=== PATIENT | female | born 1980 | race African-American/Black ===

== ENCOUNTER 2016-09-06 20:51 | Emergency (ER) | payer OTHER ==
[~2016-09-06] VITALS: Ht 167.6 cm; Wt 98.9 kg
[~2016-09-06 20:51] MED LIST: ACET-704 PO; IBUP-1060 PO
--- NOTE | 2016-09-06 21:14 | PHYS DOC ---
Past Medical History Past Medical History: No Pertinent History Past Surgical History: No Surgical History Alcohol Use: None Drug Use: None Adult General Chief Complaint Chief Complaint: HEADACHE HPI HPI Patient is a 36 year old female who presents with right sided neck pain. She states his been on for last 2 days. It kind comes and goes. She states the muscle that hurts in the base of her skull down the right lateral aspect of her neck and into her back. She denies any dizziness, headache, nausea vomiting or fevers or chills. She states that she's had this flareup in the past and saw somebody in August but they didn't give her anything for it. She states that she needs a muscle relaxant. Review of Systems Review of Systems Constitutional: Denies fever or chills [] Eyes: Denies change in visual acuity, redness, or eye pain [] HENT: Denies nasal congestion or sore throat [] Respiratory: Denies cough or shortness of breath [] Cardiovascular: No additional information not addressed in HPI [] GI: Denies abdominal pain, nausea, vomiting, bloody stools or diarrhea [] : Denies dysuria or hematuria [] Musculoskeletal: Denies back pain or joint pain [] Integument: Denies rash or skin lesions [] Neurologic: Denies headache, focal weakness or sensory changes [] Endocrine: Denies polyuria or polydipsia [] Allergies Allergies Allergies Coded Allergies Type Severity Reaction Last Updated Verified No Known Drug Allergies 07/31/15 No Physical Exam Physical Exam Constitutional: Well developed, well nourished, no acute distress, non-toxic appearance. [] HENT: Normocephalic, atraumatic, bilateral external ears normal, oropharynx moist, no oral exudates, nose normal. [] Eyes: PERRLA, EOMI, conjunctiva normal, no discharge. [] Neck: Normal range of motion, tender to palpation without any erythema over the right lateral posterior neck radiates down into her shoulder, supple, no stridor. No midline tenderness or step-offs noted. Cardiovascular:Heart rate regular rhythm, no murmur [] Lungs & Thorax: Bilateral breath sounds clear to auscultation [] Abdomen: Bowel sounds normal, soft, no tenderness, no masses, no pulsatile masses. [] Skin: Warm, dry, no erythema, no rash. [] Back: Tender palpation along teres minor in the right side of her upper back, no CVA tenderness. [] Extremities: No tenderness, no cyanosis, no clubbing, ROM intact, no edema. [] Neurologic: Alert and oriented X 3, normal motor function, normal sensory function, no focal deficits noted. [] Psychologic: Affect normal, judgement normal, mood normal. [] Current Patient Data Vital Signs Vital Signs Date Time Temp Pulse Resp B/P (MAP) Pulse Ox O2 Delivery O2 Flow Rate FiO2 09/06/16 21:00 98.1 78 18 120/60 (80) 100 Room Air 98.1 Lab Values Laboratory Tests Test 09/06/16 20:18 09/06/16 21:00 09/06/16 21:14 POC Urine HCG, Qualitative Hcg negative (Negative) Urine Collection Type Unknown Urine Color Yellow Urine Clarity Clear Urine pH 5.5 Urine Specific [place] >=1.030 Urine Protein Negative mg/dL (NEG-TRACE) Urine Glucose (UA) Negative mg/dL (NEG) Urine Ketones (Stick) Negative mg/dL (NEG) Urine Blood Moderate (NEG) Urine Nitrite Negative (NEG) Urine Bilirubin Negative (NEG) Urine Urobilinogen Dipstick 0.2 mg/dL (0.2 mg/dL) Urine Leukocyte Esterase Small (NEG) Urine RBC 1-2 /HPF (0-2) Urine WBC 1-4 /HPF (0-4) Urine Squamous Epithelial Cells Many /LPF Urine Bacteria Few /HPF (0-FEW) Urine Mucus Mod /LPF White Blood Count 5.5 x10^3/uL (4.0-11.0) Red Blood Count 4.54 x10^6/uL (3.50-5.40) Hemoglobin 13.4 g/dL (12.0-15.5) Hematocrit 40.1 % (36.0-47.0) Mean Corpuscular Volume 88 fL (79-100) Mean Corpuscular Hemoglobin 30 pg (25-35) Mean Corpuscular Hemoglobin Concent 34 g/dL (31-37) Red Cell Distribution Width 13.5 % (11.5-14.5) Platelet Count 148 x10^3/uL (140-400) Neutrophils (%) (Auto) 40 % (31-73) Lymphocytes (%) (Auto) 51 % (24-48) H Monocytes (%) (Auto) 9 % (0-9) Eosinophils (%) (Auto) 1 % (0-3) Basophils (%) (Auto) 0 % (0-3) Neutrophils # (Auto) 2.2 x10^3uL (1.8-7.7) Lymphocytes # (Auto) 2.8 x10^3/uL (1.0-4.8) Monocytes # (Auto) 0.5 x10^3/uL (0.0-1.1) Eosinophils # (Auto) 0.0 x10^3/uL (0.0-0.7) Basophils # (Auto) 0.0 x10^3/uL (0.0-0.2) Sodium Level 139 mmol/L (136-145) Potassium Level 3.4 mmol/L (3.5-5.1) L Chloride Level 105 mmol/L (98-107) Carbon Dioxide Level 27 mmol/L (21-32) Anion Gap 7 (6-14) Blood Urea Nitrogen 7 mg/dL (7-20) Creatinine 0.7 mg/dL (0.6-1.0) Estimated GFR (Cockcroft-Gault) 113.9 BUN/Creatinine Ratio 10 (6-20) Glucose Level 87 mg/dL (70-99) Calcium Level 8.7 mg/dL (8.5-10.1) Total Bilirubin 0.1 mg/dL (0.2-1.0) L Aspartate Amino Transferase (AST) 15 U/L (15-37) Alanine Aminotransferase (ALT) 25 U/L (14-59) Alkaline Phosphatase 84 U/L (46-116) Total Protein 7.6 g/dL (6.4-8.2) Albumin 3.1 g/dL (3.4-5.0) L Albumin/Globulin Ratio 0.7 (1.0-1.7) L Laboratory Tests 09/06/16 21:14 Laboratory Tests 09/06/16 21:14 EKG EKG [] Radiology/Procedures Radiology/Procedures [] Impressions: Muscle spasms Possible UTI Course & Med Decision Making Course & Med Decision Making Pertinent Labs and Imaging studies reviewed. (See chart for details) His exam she is tender over the lateral aspect of her neck on the right side, in addition to the teres minor and her back. She does not have a leukocytosis or fever do not believe there is an infectious process going on this patient. We 'll discharge with Flexeril every 8 hours when necessary muscle spasm, patient' s return ER for severe pain, numbness, fevers or other concerns. Her urine is likely contaminated however will go ahead and treat the patient with Augmentin 875 twice a day for 10 days. She wanted x-rays however I do not feel x-rays are going to be helpful this time. She might have some scalp tenderness that could be an ingrown hair of which Augmentin should help. She is to follow-up primary care physician within next 5 days. Return for nausea and given she is agreeable plan and being discharged in stable condition this time. Dragon Disclaimer Dragon Disclaimer This electronic medical record was generated, in whole or in part, using a voice recognition dictation system. Departure Departure Impression: Primary Impression: Muscle spasm Disposition: HOME, SELF-CARE Condition: STABLE Referrals: YSABEL REYES Jr, MD (PCP) Patient Instructions: Muscle Cramps Additional Instructions: Your neck and back pain is likely muscle spasm. I can feel on my physical exam. Being discharged with Flexeril which is a muscle spasm medicine. Please take it as instructed. If it makes her too sleepy only take one tablet before you go to bed. Please don't drive or taking this medicine as it can make you sleepy and impair your judgment. If you develop fevers, worsening pain, or other concerns please return back to emergency department for further evaluation. He should be seen by her primary care physician within the next 5 days. Scripts Cyclobenzaprine Hcl (CYCLOBENZAPRINE HCL) 10 Mg Tablet 1 TAB PO TID, #30 TAB Prov: CARMEN DINH MD 09/06/16 CARMEN DINH MD Sep 06, 2016 21:14
[2016-09-06 21:33] LABS: BASO % 0 % (0-3); EOS % 1 % (0-3); HEMATOCRIT 40.1 % (36.0-47.0); HEMOGLOBIN 13.4 g/dL (12.0-15.5); LYMPH # 2.8 x10^3/uL (1.0-4.8); LYMPH % 51 % (24-48); MEAN CORPUSCULAR HEMOGLOBIN 30 pg (25-35); MEAN CORPUSCULAR HGB CONC 34 g/dL (31-37); MEAN CORPUSCULAR VOLUME 88 fL (79-100); MONO % 9 % (0-9); NEUT % 40 % (31-73); PLATELET COUNT 148 x10^3/uL (140-400); RED BLOOD COUNT 4.54 x10^6/uL (3.50-5.40); RED CELL DISTRIBUTION WIDTH 13.5 % (11.5-14.5); WHITE BLOOD COUNT 5.5 x10^3/uL (4.0-11.0)
[2016-09-06 21:34] LABS: BILIRUBIN,URINE NEGATIVE (NEG); GLUCOSE,URINE NEGATIVE (NEG); NITRITE,URINE NEGATIVE (NEG); PH,URINE 5.5; PROTEIN,URINE NEGATIVE (NEG-TRACE); UROBILINOGEN,URINE 0.2 mg/dL (0.2 mg/dL)
[2016-09-06 21:40] LABS: BACTERIA,URINE FEW /HPF (0-FEW); SQUAMOUS EPITHELIAL CELL,UR MANY /LPF
[2016-09-06 21:48] LABS: CALCIUM 8.7 mg/dL (8.5-10.1); CREATININE 0.7 mg/dL (0.6-1.0); GFR 113.9; POTASSIUM 3.4 mmol/L (3.5-5.1)
[2016-09-06 21:53] LABS: ALBUMIN 3.1 g/dL (3.4-5.0); ALBUMIN/GLOBULIN RATIO 0.7 (1.0-1.7); TOTAL BILIRUBIN 0.1 mg/dL (0.2-1.0); TOTAL PROTEIN 7.6 g/dL (6.4-8.2)
[2016-09-06 22:30] VITALS: BP 112/64
[2016-09-06] MEDS ORDERED: CYCL10TA2 PO (22:32)
== END 2016-09-06 23:10 | disposition home or self-care (01) ==
LOC: ER 20:51
DX: M62.838 Other muscle spasm (principal); M25.511 Pain in right shoulder
CPT/HCPCS: 36415; 80053; 81001; 81025; 85027; 87086; 99284

== ENCOUNTER 2017-05-02 14:45 | Emergency (ER) | payer OTHER ==
[2017-05-02] MEDS: HYDROcodone/APAP 5/325MG 1 TAB TABLET PO ×2 (15:21)
== END 2017-05-02 16:04 | disposition home or self-care (01) ==
LOC: ER 14:45
DX: S39.012A Strain of muscle, fascia and tendon of lower back, initial encounter (principal); X50.9XXA Other and unspecified overexertion or strenuous movements or postures, initial encounter; Y93.89 Activity, other specified; Y99.8 Other external cause status; Y92.89 Other specified places as the place of occurrence of the external cause
CPT/HCPCS: 72100; 99284

== ENCOUNTER → 2017-10-27 | Outpatient (CLI) | payer OTHER ==
[2017-05-02 15:00] VITALS: BP 112/75
[~2017-10-27] MED LIST changes: +CYCL10TA2 PO; +HYDR-971 PO
--- NOTE | 2017-10-27 16:10 | RAD ---
EXAM: Obstetrics sonogram. HISTORY: Size and dates discrepancy. TECHNIQUE: Sonographic imaging of a gravid uterus was performed. COMPARISON: None. FINDINGS: There is a single intrauterine fetus in cephalic presentation with a heart rate of 139 bpm. There is an anterior placenta without evidence of placenta previa. There is a three-vessel umbilical cord with normal insertion. The amniotic fluid index is normal at 11.1 cm. The cervix is closed and measures 4.2 cm in length. There is a four-chamber heart. There is body motion. The stomach, kidneys, bladder, spine, facial profile and extremities are unremarkable. The cerebellum is not well seen due to presentation. The remainder of the brain is unremarkable. The biparietal diameter is 7.23 cm, corresponding with 29 weeks and 0 days. The head circumference is 26.61 cm, corresponding with 29 weeks and 0 days. The abdominal circumference is 24.76 cm, corresponding with 29 weeks and 0 days. The femoral length is 5.45 cm, corresponding with 28 weeks and 6 days. The head circumference to abdominal ratio is 1.07. The estimated weight is 1307 g and the estimated gestational age patient combined ultrasound measurements is 29 weeks and 0 days. The EDC is 01/12/2018. IMPRESSION: 1. Single intrauterine fetus in cephalic presentation with a heart rate of heart rate of 139 bpm and gestational age based on ultrasound measurements of 29 weeks and 0 days. 2. Suboptimal evaluated on the cerebellum due to presentation. The remainder the anatomy is grossly unremarkable. Electronically signed by: Caroline Aly MD (10/27/2017 4:07 PM) [id number]
== END | disposition home or self-care (01) ==
LOC: US 13:00
PROVIDERS: ATTEND Obstetrics & Gynecology
DX: O26.843 Uterine size-date discrepancy, third trimester (principal); Z3A.29 29 weeks gestation of pregnancy
CPT/HCPCS: 76805

== ENCOUNTER 2018-01-10 18:43 | Observation (INO) | payer OTHER ==
[2017-05-02 15:00] VITALS: BP 112/75
[2018-01-10 19:18] LABS: BILIRUBIN,URINE NEGATIVE (NEG); CLARITY,URINE CLEAR; COLOR,URINE YELLOW; NITRITE,URINE NEGATIVE (NEG); PROTEIN,URINE NEGATIVE (NEG-TRACE)
[2018-01-10 19:45] LABS: BACTERIA,URINE FEW /HPF (0-FEW); RBC,URINE 0 /HPF (0-2); SQUAMOUS EPITHELIAL CELL,UR MOD /LPF; WBC,URINE OCC /HPF (0-4)
[2018-01-10] MEDS ORDERED: ACETAMINOPHEN 500 MG TABLET PO PRN (20:15)
[2018-01-15] MEDS ORDERED: HYDR-971 PO (17:16)
[2018-01-15] MEDS ORDERED: NAPR-514 PO (17:16)
== END 2018-01-10 21:23 | disposition home or self-care (01) ==
LOC: 3 SO LND 18:43
PROVIDERS: ADMIT Obstetrics & Gynecology; ATTEND Obstetrics & Gynecology
DX: O26.893 Other specified pregnancy related conditions, third trimester (principal); R10.2 Pelvic and perineal pain; Z3A.39 39 weeks gestation of pregnancy
CPT/HCPCS: 81001; G0378; G0379

== ENCOUNTER 2018-09-24 13:14 | Emergency (ER) | payer MEDICAID, OTHER ==
[~2018-09-24] VITALS: Ht 167.6 cm; Wt 90.7 kg
[~2018-09-24 13:14] MED LIST changes: +HYDR-3164 PO; -HYDR-971 PO; +NAPR-514 PO
[2018-09-24 14:16] VITALS: BP 114/75
--- NOTE | 2018-09-24 16:17 | RAD ---
Ultrasound venous system of the right leg 09/24/2018. Reason for exam: Pain and swelling for one week. Color Doppler and spectral waveform analysis was performed along with real-time grayscale technique. The deep veins of the right lower extremity show normal compressibility and normal Doppler flow and augmentation of flow extending from the common femoral segment to the popliteal segment. The visualized calf veins also appear normal. IMPRESSION: No evidence of DVT. Electronically signed by: Froylan Banerjee Jr., MD (09/24/2018 4:15 PM) [facility] [place]
[2018-09-24] MEDS ORDERED: NAPR-514 PO (16:34)
[2018-09-24] MEDS ORDERED: CYCL10TA2 PO (16:34)
--- NOTE | 2018-09-24 16:35 | PHYS DOC ---
Past Medical History Past Medical History: No Pertinent History Past Surgical History: No Surgical History Alcohol Use: None Drug Use: None Adult General Chief Complaint Chief Complaint: LOWER EXT PAIN HPI HPI Patient is a 38 year old female who presents to the ER with complaints of right lower leg pain and cramping for the last week. She denies any known injury. She states that her right foot feels tight and that the leg cramping usually occurs during the night. She also complains of right sided neck pain for the last 4-5 days. She denies any known injury to her neck, states she first noticed the pain after awakening. She states that the discomfort in her neck feels like tightness and increases with range of motion. Currently, she rates her discomfort an 8 out of 10 on the pain scale, she denies any alleviating factors. Both the leg pain in the neck pain get worse with movement. She denies any numbness, tingling, or weakness of her right leg or right upper extremities. Review of Systems Review of Systems Constitutional: Denies fever or chills [] Eyes: Denies change in visual acuity, redness, or eye pain [] HENT: Denies nasal congestion or sore throat [] Respiratory: Denies cough or shortness of breath [] Cardiovascular: No additional information not addressed in HPI [] GI: Denies abdominal pain, nausea, vomiting, or diarrhea [] Musculoskeletal: see history of present illness Integument: Denies rash or skin lesions [] Neurologic: Denies headache, focal weakness or sensory changes [] Complete systems were reviewed and found to be within normal limits, except as documented in this note. Allergies Allergies Allergies Coded Allergies Type Severity Reaction Last Updated Verified No Known Drug Allergies 07/31/15 No Physical Exam Physical Exam Constitutional: Well developed, well nourished, no acute distress, non-toxic appearance. [] HENT: Normocephalic, atraumatic, bilateral external ears normal, nose normal. [] Eyes: PERRLA, conjunctiva normal, no discharge. [] Neck: Normal range of motion, no bony tenderness, supple, no stridor.; right paracervical tightness and tenderness to palpation consistent with torticollis Cardiovascular:Heart rate regular rhythm, no murmur [] Lungs & Thorax: Bilateral breath sounds clear to auscultation [] Skin: Warm, dry, no erythema, no rash. [] Back: No tenderness, no CVA tenderness. [] Extremities: No cyanosis, no clubbing, ROM intact; R calf tenderness to palpation, no deformity Neurologic: Alert and oriented X 3, no focal deficits noted. [] Psychologic: Affect normal, judgement normal, mood normal. [] Current Patient Data Vital Signs Vital Signs Date Time Temp Pulse Resp B/P (MAP) Pulse Ox O2 Delivery O2 Flow Rate FiO2 09/24/18 14:16 97.6 78 16 114/75 (88) 98 Room Air 97.6 EKG EKG [] Radiology/Procedures Radiology/Procedures PROCEDURE: VENOUS LOWER EXTREMITY RIGHT Ultrasound venous system of the right leg 09/24/2018. Reason for exam: Pain and swelling for one week. Color Doppler and spectral waveform analysis was performed along with real-time grayscale technique. The deep veins of the right lower extremity show normal compressibility and normal Doppler flow and augmentation of flow extending from the common femoral segment to the popliteal segment. The visualized calf veins also appear normal. IMPRESSION: No evidence of DVT. [] Course & Med Decision Making Course & Med Decision Making Pertinent Labs and Imaging studies reviewed. (See chart for details) [] Dragon Disclaimer Dragon Disclaimer This electronic medical record was generated, in whole or in part, using a voice recognition dictation system. Departure Departure Impression: Primary Impression: Right torticollis Additional Impression: Cramps of right lower extremity Disposition: 01 HOME, SELF-CARE Condition: STABLE Referrals: NO PCP (PCP) Patient Instructions: Leg Cramps, Torticollis, Acute Additional Instructions: Fill the prescriptions and use as directed. Drink plenty of clear fluids. You may apply heat or ice to sore areas as needed for comfort. Follow up with your primary care doctor if symptoms persist, return to the ER if symptoms worsen. Scripts Cyclobenzaprine Hcl (CYCLOBENZAPRINE HCL) 10 Mg Tablet 1 TAB PO TID PRN for MUSCLE PAIN for 10 Days, #30 TAB 0 Refills Prov: RIDGE BARNETT APRN 09/24/18 Naproxen (NAPROXEN) 500 Mg Tablet 1 TAB PO BID for 10 Days, #20 TAB 0 Refills Prov: RIDGE BARNETT APRN 09/24/18 Problem Qualifiers RIDGE BARNETT APRN Sep 24, 2018 16:35
== END 2018-09-24 16:43 | disposition home or self-care (01) ==
LOC: ER 13:14
DX: M43.6 Torticollis (principal); R25.2 Cramp and spasm
CPT/HCPCS: 93971; 99284